=== PATIENT | female | born 1950 | race Caucasian/White ===

== ENCOUNTER 2021-09-17 18:05 | Outpatient (CLI) | payer MEDICARE, OTHER, SELFPAY ==
--- NOTE | 2021-09-17 | CYSPIN_PTH ---
PATIENT: JR MANNING LOC: [facility] U#:[id number] AGE/SX: 70/F ROOM: RE09/17/[address]: Dr. Amalia Meza MD : 1950 BED: DIS: 09/17/2021 SPEC #: [id number] RECD: 09/18/21 07:04 STATUS: JHOAAN ZURITA #: [id number] FRANCESCO: 09/17/21 00:[address]: Amalia Meza DEPT: CYTOLOGY RECD BY: Niurka Boyd Tissues: Urine Procedures: Pap Stain (control) Special Stain Group II Cytospin Fluid HEADER OPERATION: Not noted PRE-OP DIAGNOSIS: Gross hematuria TISSUE SUBMITTED: Urine for cytology DIAGNOSIS CYTOLOGY Urine for cytology (cytospin): A few atypical urothelial cells noted. See comment. RITESH:kary 09/18/2021 COMMENT The predominantly consists of squamous epithelial cells. Numerous organisms consistent with bacteria are also noted. Clinical correlation and appropriate follow up are necessary. Case has been reviewed in consultation with Dr. Berry who concurs with the above diagnosis. IDC:AM CYTOLOGY STUDY Slides are reviewed. CYTOLOGY GROSS Received is 30 ml of dark gold cloudy fluid labeled with the patient's name and and designated per the requisition as urine. Submitted for cytology preparation. / kary 09/18/2021 TC:5 CPT: 87637
[2021-09-17 18:08] LABS: Cytology, Body Fluid / CSF SEE PATHOLOGY REPORT
== END 2021-09-17 23:59 | disposition short-term general hospital (02) ==
PROVIDERS: Visit Provider Urology
DX: R31.0 Gross hematuria (principal)
CPT/HCPCS: 88108; 88313

== ENCOUNTER 2021-10-20 08:35 | Day surgery (SDC) | payer MEDICARE, OTHER, SELFPAY ==
[2021-10-20] VITALS (7 sets, daily range): BP systolic 140–163; BP diastolic 57–80; PULSE 61–79; RESP 16–18; TEMP 36.3–36.6; O2SAT 95–99; BMI 29.0
--- NOTE | 2021-10-20 08:45 | EKG12_ITS ---
Test Reason : PRE OP Blood Pressure : / mmHG Vent. Rate : 071 BPM Atrial Rate : 071 BPM P-R Int : 154 ms QRS Dur : 076 ms QT Int : 400 ms P-R-T Axes : 071 001 050 degrees QTc Int : 434 ms Normal sinus rhythm Normal ECG No previous ECGs available Confirmed by JOSEFINA MONTANO, STEPHANIE ([id number]), editor index PAULINE MCPHERSON ([id number]) on 10/24/2021 1:53:55 PM Referred By: Amalia Meza Confirmed By:LYSSA ROCHA MD
[2021-10-20 09:42] LABS: Hematocrit 45.5 % (37-47); Hemoglobin 15.8 g/dL (12.0-15.0); Mean Corp Hgb Conc 34.7 g/dL (32-36); Mean Corpuscular Hgb 32.9 pg (27.0-32.0); Mean Corpuscular Volume 94.8 fL (81-99); Mean Platelet Vol. 10.8 fl (6.2-12.0); Platelet Count 236 K/mm3 (150-450); RBC Distribution Width CV 12.4 % (11.6-14.6); RBC Distribution Width SD 43.2 fl (35.1-43.9); White Blood Count 6.6 K/mm3 (4.4-11.0)
[2021-10-20] MEDS: Lactated Ringers 1,000 ML 15 ML IV (09:46)
--- NOTE | 2021-10-20 09:49 | PCM.OPRPT ---
Problems Associated Problem List Diagnoses (1) Gross hematuria: (2) Urge incontinence: Report of Operation Date of Procedure: 10/20/21 Pre-Operative Diagnosis: Gross hematuria, urge incontinence Post-Operative Diagnosis: Same Surgery/Procedure Performed:: Cystoscopy, bilateral ureteral catheterization with selective cytology, bilateral attempted ureteroscopy, bilateral ureteral stent insertion Surgeon: Amalia Meza Type of Anesthesia: General Specimen's removed: Selective cytologies from the right and left kidneys Description of Procedure: The patient is a 71-year-old female who has a history of gross hematuria with clots, negative culture with some atypical cells found on cytology. She now presents for selective cytologies and bilateral ureteroscopy for further evaluation. Informed consent was obtained. The patient was taken to the operating room and placed on the operating room table. Anesthesia monitored the head, neck, airway, IV access and vital signs throughout the case. Once anesthesia was appropriately ministered, the patient was placed into dorsal lithotomy position was prepped and draped in usual sterile fashion. The cystoscope was inserted through the urethra under direct visualization into the urinary bladder. Bilateral ureteral orifices were identified in the area of the trigone. The right ureteral orifice was intubated with a Pollack catheter and was extended up to 20 cm at which point the renal pelvis was irrigated and fluid was sent for cytology. This process was repeated on the left side with a brand-new Pollick catheter, and brand-new 10 cc syringe. At this point, a 0.035 Glidewire was passed into the right ureteral orifice and seen curled in the renal pelvis. The flexible ureteroscope was attempted to be inserted over the wire, however resistance was met and I was unable to extend the scope into the ureter beyond the ureteral orifice. Using the Glidewire and the cystoscope, a 6 [place] 26 cm JJ stent was inserted over the wire with good positioning in the renal pelvis as well as the urinary bladder. This process was repeated on the patient's left side, where I was unable to obtain access secondary to distal ureteral narrowing. A 6 [place] 26 cm JJ stent was passed over the wire with good curling in the renal pelvis as well as the urinary bladder. The patient's bladder was then emptied and the case was terminated. The patient tolerated the procedure well and there were no complications during the procedure. She was awakened and taken to the recovery room in good condition. Grafts/Implants Used: 6 x 26 JJ stent x2 Complications None Admit VTE Documentation VTE Present on Admission: Yes VTE Mechan Device Prophylaxis: SCD's Reason prophylaxis not ordered:: Treatment Not Indicated
--- NOTE | 2021-10-20 09:53 | PCM.DC ---
Discharge Instructions Diet Discharge Diet: No restrictions Activity Discharge Activity: Return to Normal Activity Dressing / Incision Call your doctor if you observe: Fever of 101 or Higher, Inability to urinate and Inability to have a bowel movement Follow Up Care Please Follow Up With: Amalia Meza MD When: in the office in 1 week, call for appt. Test Results: Test results from this visit will be discussed in further detail at your follow-up appointment, if applicable. Discharge Plan Admission Attending Provider: Amalia Meza Primary Care Provider: Gerry Oneal NP Discharge Orders/Prescriptions Prescriptions: New oxycodone-acetaminophen [oxycodone-acetaminophen] 1 TABLET tablet 2 tab PO Q8H PRN PRN (Reason: Pain) 3 Days Qty: 10 RF: 0 cephalexin [cephalexin] 500 MG capsule 500 mg PO Q12 3 Days Qty: 6 RF: 0 Continued magnesium 500 mg Tablet 500 mg PO DAILY RF: 0 levothyroxine [Synthroid] 100 mcg Tablet 100 mcg PO DAILY RF: 0 montelukast [Singulair] 10 mg Tablet 10 mg PO DAILY RF: 0 fluticasone propionate [Flonase Allergy Relief] 50 mcg/actuation [place],Suspension 1 spray INTRANASAL DAILY RF: 0 zinc 50 mg Capsule 50 mg PO DAILY RF: 0 duloxetine [Cymbalta] 60 mg Capsule,Delayed Release(Dr/Ec) 60 mg PO QHS RF: 0 trospium 60 mg Capsule,Extended Release 24hr 60 mg PO DAILY RF: 0 cholecalciferol (vitamin D3) [Vitamin D3] 50 mcg (2,000 unit) Tablet 50 mcg PO DAILY RF: 0 Uribel 118-10-40.8-36 mg Capsule 1 cap PO PRN PRN (Reason: Bladder Spasms) RF: 0 Prolia 60 mg/mL Syringe 60 mg SUBCUT .Q6MO RF: 0 pantoprazole 40 mg Tablet,Delayed Release (Dr/Ec) 40 mg PO 1500 RF: 0 Referrals / Follow Up: Gerry Oneal NP, SOLUTION DIRECTOR-C [Primary Care Provider] - Disposition Disposition (needs filled in before D/C Order can be placed): Home, Self Care
[2021-10-20 09:58] LABS: Anion Gap 3 (5-15); BUN 12 mg/dL (7-18); BUN/Creat Ratio 15.4 RATIO (10-20); Calcium,Total 9.2 mg/dL (8.5-10.1); Chloride 109 mmol/L (98-107); Creatinine, Serum 0.78 mg/dL (0.55-1.02); EST Glomerular Filtration Rate 78 mL/min (>60); Est Glom Filt Rate - Afr Amer 94 mL/min (>60); Estimated Creatinine Clearance 51.63 ml/min; Glucose 94 mg/dL (74-106); Potassium 4.4 mmol/L (3.5-5.1); Sodium Level 141 mmol/L (136-145)
[2021-10-20] MEDS: Cefazolin 2 GM in 0.9% Normal Saline 100 ML IV (10:11)
--- NOTE | 2021-10-20 11:02 | CYSPIN_PTH ---
PATIENT: JR MANNING LOC: [facility] [place] U#:[id number] AGE/SX: 71/F ROOM: RE10/20/[address]: Dr. Amalia Meza MD : 1950 BED: DIS: 10/20/2021 SPEC #: [id number] RECD: 10/20/21 11:48 STATUS: JHOANA PARMINDER #: [id number] FRANCESCO: 10/20/21 11:[address]: Amalia Meza DEPT: CYTOLOGY RECD BY: Niurka Boyd ENTERED: 10/20/21 11:51 SP TYPE: CYSPIN FL OTHR DR: Gerry Oneal, TECHNICAL WRITER AND EDITOR-Shyla Tissues: A - Urine B - Urine Procedures: Pap Stain (control) Special Stain Group II Cytospin Fluid HEADER OPERATION: Not noted PRE-OP DIAGNOSIS: Gross hematuria TISSUE SUBMITTED: A ? Urine for cytology, right renal pelvis, B - Urine for cytology, left renal pelvis DIAGNOSIS CYTOLOGY A. Right renal pelvis urine for cytology (cytospin): Negative for malignant cells. See comment. B. Left renal pelvis urine for cytology (cytospin): Negative for malignant cells. See comment. SJ:kary 10/21/2021 COMMENT A & B. The specimen shows clusters of benign urothelial cells. Please make reference to previous specimen ([id number]) urine for cytology with diagnosis of ?a few atypical urothelial cells noted.? CYTOLOGY STUDY Slides are reviewed. CYTOLOGY GROSS A - Received is 5 ml of clear colorless fluid with particles labeled with the patient's name and and designated per the requisition as urine. Submitted for cytology preparation. B - Received is 10 ml of clear colorless fluid with particles labeled with the patient's name and and designated per the requisition as urine. Submitted for cytology preparation. / kary 10/20/2021 TC:4 CPT: 32094 x2
[2021-10-20 11:14] LABS: Cytology, Body Fluid / CSF SEE PATHOLOGY REPORT
[2021-10-20 11:14] LABS: Cytology, Body Fluid / CSF SEE PATHOLOGY REPORT
== END 2021-10-20 23:59 | disposition home or self-care (01) ==
LOC: SDC 08:41 → AC 08:42
PROVIDERS: PCP Nurse Practitioner Family; Referring Provider Urology; Visit Provider Urology
PROC: 0TJ98ZZ Inspection of Ureter, Via Natural or Artificial Opening Endoscopic (ICD-10-PCS; CPT 52352; principal; 2021-10-20 09:40)
DX: N39.41 Urge incontinence (principal); R31.0 Gross hematuria; E07.9 Disorder of thyroid, unspecified; E78.2 Mixed hyperlipidemia; R01.1 Cardiac murmur, unspecified; G43.909 Migraine, unspecified, not intractable, without status migrainosus; N32.81 Overactive bladder; N95.2 Postmenopausal atrophic vaginitis; N34.3 Urethral syndrome, unspecified; Z79.890 Hormone replacement therapy; Z79.899 Other long term (current) drug therapy; K21.9 Gastro-esophageal reflux disease without esophagitis; M19.90 Unspecified osteoarthritis, unspecified site; F41.9 Anxiety disorder, unspecified
CPT/HCPCS: 52332; 00910; 76000; 80048; 85027; 87426; 88108; 88313; 93005; J7120; C2617; J2405

== ENCOUNTER 2021-11-03 08:10 | Day surgery (SDC) | payer MEDICARE, OTHER, SELFPAY ==
[2021-11-03] VITALS (7 sets, daily range): BP systolic 136–169; BP diastolic 65–82; PULSE 75–90; RESP 16–20; TEMP 36.8–37.3; O2SAT 94–100; BMI 28.6
--- NOTE | 2021-11-03 | MISC_PTH ---
PATIENT: JR MANNING LOC: [facility] [place] U#:[id number] AGE/SX: 71/F ROOM: RE11/03/[address]: Dr. Amalia Meza MD : 1950 BED: DIS: 11/03/2021 SPEC #: [id number] RECD: 11/03/21 10:43 STATUS: JHOANA ZURITA #: [id number] FRANCESCO: 11/03/21 00:[address]: Amalia Meza DEPT: SURGICAL PATHOLOGY RECD BY: Kyle Guadarrama ENTERED: 11/04/21 10:44 SP TYPE: [facility] [place] OT DR: Gerry Oneal, [place]-C Tissues: Pelvis, NOS Procedures: Surgery Specimen Level IV HEADER OPERATION: Cysto, ureteroscopy, stent removal PRE-OP DIAGNOSIS: Urge incontinence, gross hematuria TISSUE SUBMITTED: Debris from left renal pelvis MICROSCOPIC DIAGNOSIS Tissue from left renal pelvis, biopsy: Blood clot with embedded detached urothelium with mild atypia. See comment. AM:kary 11/05/2021 COMMENT Clinical correlation is suggested. MICROSCOPIC DESCRIPTION Slides are reviewed. GROSS DESCRIPTION Received in fixative is one container labeled with the patient's name and designated debris from left renal pelvis. The specimen consists of a single irregular fragment of dark menjivar tissue measuring 0.5 x 0.2 x 0.1 cm. The specimen is totally submitted in one cassette. / AM:kary 11/04/2021 TC:5 CPT: 68446
[2021-11-03] MEDS: Lactated Ringers 1,000 ML 15 ML IV (08:41)
--- NOTE | 2021-11-03 09:39 | PCM.OPRPT ---
Problems Associated Problem List Diagnoses (1) Urge incontinence: (2) Gross hematuria: Report of Operation Date of Procedure: 11/03/21 Pre-Operative Diagnosis: Gross hematuria, urge incontinence Post-Operative Diagnosis: Same Surgery/Procedure Performed:: Cystoscopy with bilateral ureteroscopy, bilateral ureteral stent removal Surgeon: Amalia Meza Type of Anesthesia: General Specimen's removed: left ureteral debris for cytologic evaluation Description of Procedure: The patient is a 71-year-old female who had an episode of gross hematuria. She had cystoscopy and bilateral selective cytologies done along with bilateral ureteral stent insertion secondary to ureteral narrowing. She now presents for repeat ureteroscopy for further evaluation. Informed consent was obtained. The patient was taken to the operating room and placed on the operating room table. Anesthesia monitored the head, neck, airway, IV access and vital signs throughout the case. Once anesthesia was appropriately administered, the patient was placed into dorsal lithotomy position was prepped and draped in usual sterile fashion. The cystoscope was inserted through the urethra under direct visualization into the urinary bladder. The right ureteral orifice was identified and the stent extruding from the orifice was grasped and pulled through the urethral meatus. It was then intubated with a 0.035 Glidewire which was easily extended into the renal pelvis is seen on fluoroscopy. The stent was then removed and the flexible ureteroscope was placed over the wire and inserted all the way up to the renal pelvis without difficulty. Direct visualization of each calyx was performed. There was some bleeding secondary to the ureteral stent. No mass, or stone was identified. At this time the entire length of the ureter was directly visualized and there are no abnormalities identified. This process was then repeated on the patient's left side which also revealed no evidence of mass, stone or filling defect. There is a small amount of debris which was sent for cytologic evaluation. The patient's bladder was then emptied and the case was terminated. The patient was awakened and taken to the recovery room in good condition. There were no complications during this procedure. Grafts/Implants Used: None Admit VTE Documentation VTE Present on Admission: Yes VTE Mechan Device Prophylaxis: SCD's VTE Pharm Prophylaxis ordered?: No Reason prophylaxis not ordered:: Treatment Not Indicated
--- NOTE | 2021-11-03 09:40 | DCINST_ITS ---
Discharge Instructions Diet Discharge Diet: No restrictions Activity Discharge Activity: Return to Normal Activity Dressing / Incision Call your doctor if you observe: Fever of 101 or Higher, Inability to urinate and Inability to have a bowel movement Follow Up Care Please Follow Up With: Amalia Meza MD When: Call the office for appointment Test Results: Test results from this visit will be discussed in further detail at your follow-up appointment, if applicable. Discharge Plan Admission Attending Provider: Amalia Meza Primary Care Provider: Gerry Oneal NP Discharge Orders/Prescriptions Prescriptions: Continued magnesium 500 mg Tablet 500 mg PO DAILY RF: 0 levothyroxine [Synthroid] 100 mcg Tablet 100 mcg PO DAILY RF: 0 montelukast [Singulair] 10 mg Tablet 10 mg PO DAILY RF: 0 fluticasone propionate [Flonase Allergy Relief] 50 mcg/actuation [place],Suspens ion 1 spray INTRANASAL PRN PRN (Reason: ALLERGIES) RF: 0 zinc 50 mg Capsule 50 mg PO DAILY RF: 0 duloxetine [Cymbalta] 60 mg Capsule,Delayed Release(Dr/Ec) 60 mg PO QHS RF: 0 trospium 60 mg Capsule,Extended Release 24hr 60 mg PO DAILY RF: 0 cholecalciferol (vitamin D3) [Vitamin D3] 50 mcg (2,000 unit) Tablet 50 mcg PO DAILY RF: 0 Uribel 118-10-40.8-36 mg Capsule 1 cap PO PRN PRN (Reason: Bladder Spasms) RF: 0 Prolia 60 mg/mL Syringe 60 mg SUBCUT .Q6MO RF: 0 pantoprazole 40 mg Tablet,Delayed Release (Dr/Ec) 40 mg PO 1500 RF: 0 ondansetron HCl 4 mg Tablet RF: 0 Referrals / Follow Up: Gerry Oneal NP, STATOR PLATE WASHER-C [Primary Care Provider] - Disposition Disposition (needs filled in before D/C Order can be placed): Home, Self Care
[2021-11-03] MEDS: Cefazolin 2 GM in 0.9% Normal Saline 100 ML IV (09:55)
== END 2021-11-03 23:59 | disposition home or self-care (01) ==
LOC: SDC 08:10 → AC 08:11
PROVIDERS: PCP Nurse Practitioner Family; Referring Provider Urology; Visit Provider Urology
PROC: 0TJ98ZZ Inspection of Ureter, Via Natural or Artificial Opening Endoscopic (ICD-10-PCS; CPT 52352; principal; 2021-11-03 09:35)
DX: N39.41 Urge incontinence (principal); R31.0 Gross hematuria; N34.2 Other urethritis; N95.2 Postmenopausal atrophic vaginitis; N32.81 Overactive bladder; E89.0 Postprocedural hypothyroidism; E78.2 Mixed hyperlipidemia; M19.90 Unspecified osteoarthritis, unspecified site; Z79.890 Hormone replacement therapy; Z79.899 Other long term (current) drug therapy; Z20.822 Contact with and (suspected) exposure to COVID-19
CPT/HCPCS: 52310; 76000; 87811; 88305; J7120; J2405

== ENCOUNTER → 2022-02-17 | Outpatient (CLI) | payer MEDICARE, OTHER, SELFPAY ==
--- NOTE | 2022-02-17 15:50 | CT_ITS ---
STUDY: CT Abdomen And Pelvis WO/W Contrast Injection 02/17/2022 5:11 PM REASON FOR EXAM: Female, 71 years old. Abdominal pain STONES, HEMATURIA Individualized dose optimization techniques were used for this CT. COMPARISON: None. TECHNIQUE: CT Abdomen And Pelvis WO/W Contrast Injection 75ML ISOVUE 370 FINDINGS: There are atherosclerotic calcifications of visualized coronary arteries. Left lower lobe calcified granuloma. Left mastectomy changes. Normal liver. There is a solitary gallstone. Normal spleen. Normal pancreas. Normal bilateral adrenal glands. No acute findings of the right kidney. No acute findings of the left kidney. Normal visualized stomach. Normal small intestine. There are multiple colonic diverticula consistent with diverticulosis. There is non-visualization of the appendix. There are calcifications of the abdominal aorta. This is consistent for atherosclerotic disease. There is NO abdominal aortic aneurysm. Vascular workup can be obtained based on clinical correlation. Normal inferior vena cava. Subcentimeter mesenteric lymph nodes. Normal urinary bladder. There is absence of the uterus consistent with a prior hysterectomy. There is an umbilical hernia containing fat. There are diffuse degenerative changes of the visualized lumbar spine. Old appearing compression deformity of L5. CT/CT Abd/Pelvis W/WO Contrast IMPRESSION: (NOT LISTED IN ORDER OF SIGNIFICANCE) There are no acute findings. There are multiple colonic diverticula consistent with diverticulosis. There is a solitary gallstone. Other findings as above. Electronically Signed: Faizan Yeager MD at 17:13 EDT ,
[2022-02-17 16:01] LABS: CREATININE FINGERSTICK < 0.9 mg/dL (0.55-1.02); EGFR FINGERSTICK > 60.0000 mL/min (>60)
== END | disposition home or self-care (01) ==
LOC: CT 15:49
PROVIDERS: PCP Nurse Practitioner Family; Referring Provider Urology; Visit Provider Urology
DX: N20.0 Calculus of kidney (principal); R31.9 Hematuria, unspecified
CPT/HCPCS: 74178; Q9967